=== PATIENT | female | born 1955 | race Caucasian/White ===

== ENCOUNTER 2016-12-18 20:13 | Inpatient (IN) | payer OTHER ==
[~2016-12-18] VITALS: Ht 157.5 cm; Wt 118.5 kg
[~2016-12-18 20:13] MED LIST: BENA40TA41 PO; GLIP-95 PO; METF500T4 PO; SITA100T8 PO
[2016-12-18] MEDS ORDERED: SOD CHLORIDE 0.9% 1,000 ML IV STA (21:26)
[2016-12-18] MEDS ORDERED: ONDANSETRON 4 MG INJ IV STA (21:31)
[2016-12-18] MEDS ORDERED: SOD CHLORIDE 0.9% 1,000 ML IV ONE (22:00)
[2016-12-18] MEDS ORDERED: morphine 10 MG INJ IV ONE (22:00)
[2016-12-18] MEDS ORDERED: IBUP-1542 PO (22:15)
[2016-12-18 22:16] LABS: ADD SCAN DIFF NO
[2016-12-18 22:18] LABS: ADD UMIC YES; BASOPHIL # 0.1 10^3/ul (0.0-0.1); BASOPHILS % 0.4 % (0.0-2.0); EOSINOPHILS # 0.2 10^3/ul (0.0-0.5); EOSINOPHILS % 1.4 % (0.0-7.0); HEMATOCRIT 39.7 % (37.0-47.0); HEMOGLOBIN 13.4 g/dl (12.0-16.0); LYMPHOCYTES # 2.1 10^3/ul (0.8-2.9); LYMPHOCYTES % 17.7 % (15.0-51.0); MEAN CORPUSCULAR HEMOGLOBIN 29.6 pg (29.0-33.0); MEAN CORPUSCULAR HGB CONC 33.8 g/dl (32.0-37.0); MEAN CORPUSCULAR VOLUME 87.8 fl (82.0-101.0); MEAN PLATELET VOLUME 11.9 fl (7.4-10.4); MONOCYTE # 0.6 10^3/ul (0.3-0.9); MONOCYTES % 5.1 % (0.0-11.0); NEUTROPHIL # 8.9 10^3/ul (1.6-7.5); PLATELET COUNT 256 10^3/UL (140-415); RED BLOOD COUNT 4.52 10^6/ul (4.20-5.40); URINE BILIRUBIN (Dip) NEGATIVE (NEGATIVE); URINE BLOOD (Dip) 1+ (NEGATIVE); URINE COLOR LT. YELLOW (YELLOW); URINE GLUCOSE (Dip) NEGATIVE (NEGATIVE); URINE KETONES (Dip) NEGATIVE (NEGATIVE); URINE LEUKOCYTE ESTERASE (Dip) TRACE (NEGATIVE); URINE NITRITE (Dip) NEGATIVE (NEGATIVE); URINE TOTAL PROTEIN (Dip) NEGATIVE (NEGATIVE); URINE UROBILINOGEN (Dip) 0.2 E.U./dL (0.1-1.0); WHITE BLOOD COUNT 11.9 10^3/ul (4.8-10.8)
[2016-12-18 22:48] LABS: BACTERIA,URINE FEW; SQUAMOUS EPITHELIAL CELL,UR FEW
[2016-12-18 23:02] LABS: ALBUMIN 3.6 g/dl (3.3-4.9); INR 0.95; PARTIAL THROMBOPLASTIN TIME 29.6 Sec (25.0-35.0); POTASSIUM 4.2 mmol/L (3.5-5.1); PROTIME 12.7 Sec (12.2-14.2)
[2016-12-18 23:04] LABS: BILIRUBIN,INDIRECT 0.3 mg/dl (0-1.1); BILIRUBIN,TOTAL 0.3 mg/dl (0.2-1.3); CREATININE 0.46 mg/dl (0.44-1.00)
[2016-12-18 23:05] LABS: ALBUMIN/GLOBULIN RATIO 1.16; CALCIUM 8.5 mg/dl (8.4-10.2); TOTAL PROTEIN 6.7 g/dl (6.1-8.1)
--- NOTE | 2016-12-19 00:02 | RADRPT ---
PROCEDURE: CT Abdomen and pelvis without contrast. CLINICAL INDICATION: Abdominal pain. TECHNIQUE: CT scan of the abdomen and pelvis was performed on a multi-detector high-resolution CT scanner. Contiguous axial images were obtained from the lung bases to the ischial tuberosities wit hout intravenous contrast. Coronal and sagittal reformatted images were also obtained. Images were reviewed on the PACS workstation. One or more of the following dose reduction techniques were used: - Automated exposure control. - Adjustment of the mA and/or kV according to patient size. - Use of iterative reconstruction technique. Exam CTD/vol = 23.45 mGy. Total exam DLP = 1419.86 mGy-cm. COMPARISON: 05/18/2016. FINDINGS: Evaluation of the lung bases demonstrates mild bibasilar atelectasis. Abdomen: The liver is normal in size. There is no focal mass or dilatation of the biliary tree. T he patient is status post cholecystectomy. The spleen, pancreas and bilateral adrenal glands are wi thin normal limits. Bilateral kidneys are normal in size. There is a peripherally calcified struct ure off of the upper pole of the right kidney measuring 1.5 x 1.3 cm. There is a fat containing les ion off of the lower pole of the right kidney measuring 2.8 x 2.9 cm consistent with an angiomyolipo ma. There is a 1 mm calculus within the lower pole of the left kidney. There is no radiopaque uret eral calculus identified. There is no hydronephrosis or hydroureter. There is no retroperitoneal a denopathy. The abdominal aorta is of normal caliber with scattered atherosclerotic calcifications. There is a moderate right periumbilical hernia containing multiple loops of small bowel. There are mildly dilated loops of small bowel with air-fluid levels. There is no free air. A normal appendix is identified. There is no diverticulosis or diverticulitis. There is no ascites. Pelvis: The bladder is unremarkable. The uterus and adnexa are within normal limits. There is no significant pelvic adenopathy or free fluid. Evaluation of the osseous structures demonstrates no suspicious lytic or blastic lesion. IMPRESSION: Moderate right periumbilical hernia containing multiple loops of small bowel with obstruction, uncha nged compared with 05/18/2016. Status post cholecystectomy. Right renal angiomyolipoma, unchanged. Small parenchymal calcification within the upper pole of the right kidney, unchanged. Nonobstructing left renal calculus. Mild bibasilar atelectasis. Vascular calcifications reflective of atherosclerosis. .Randall Ruiz MD, Date Time Electronically viewed and signed by .Randall Ruiz MD, on 12/19/2016 00:01 .T/
[2016-12-19] MEDS ORDERED: morphine 4 MG/ML VIAL IV STA (00:21)
[2016-12-19] MEDS ORDERED: ONDANSETRON 4 MG INJ IV STA (01:46)
[2016-12-19] MEDS ORDERED: DICLOFENAC SODIUM 37.5 MG/ML VIAL IV STA (01:46)
[2016-12-19] MEDS ORDERED: ACETAMINOPHEN 325 MG TAB PO PRN (02:00)
[2016-12-19] MEDS ORDERED: ONDANSETRON 4 MG INJ IV PRN ×2 (02:00→18:30)
--- NOTE | 2016-12-19 02:15 | HP ---
Date/Time of Note Date/Time of Note DATE: 12/19/16 TIME: 02:13 Assessment/Plan VTE Prophylaxis VTE Prophylaxis Intervention: other (Lovanox) Assessment/Plan Assessment/Plan 1) Umbilical Hernia, possibly incarcerated, but questionable since the same findings were seen on her CT don in 04/2016, including the bowel obstruction - Admit to Med Surg - NPO - Pain Control - CONSULT: Surgeon - Dr. Corbin notified by ER physician 2) Abnormal finding on CT, possible bowel obstruction with same findings present in 04/2016 - Surgical Evaluation as planned. 3) Hypertensive emergency, treated in the ED - Monitor 4) Morbid Obesity HPI/ROS Admit Date/Time Admit Date/Time 12/19/16 0146 Hx of Present Illness Chief Complaint abdominal pain x 3 days HPI 61-year-old female presents, accompanied by her daughter, with lower abdominal pain for 3 days. The hernia has been present for months, but it has not hurt her until now. No fever or chills. No blood in stool. No black-colored stool Some nausea. Vomited once. No diarrhea. Passing gas and stool. No dysuria, urgency or frequency. No unusual vaginal discharge. History of hernia repaired twice in that area. ER Course per ER Physician: Incarcerated hernia with significant abdominal pain and bowel obstruction. No current signs of strangulation. Pain was refractory but is relieved by pain medications received in the ER. Patient received morphine, dilated jet, Dilaudid. She also receives Zofran for which on the second dose of 4 mg IV her nausea was resolved. She has significant hypertension even with pain relief. Prevent any other acute emergencies in the setting of a hypertensive emergency she was given labetalol 20 mg IV which did reduce the blood pressure to an acceptable level. Spoke to Dr. Corbin, neurosurgeon dental front office assistant, who will see the patient in consult few hours. I also spoke with Dr. Buatista will be admitting the patient to the medical surgical floor. She was given IV hydration and will possibly be going to surgery in the morning. She is placed on n.p.o. status. CT abdomen pelvis interpretation: Hernia with multiple bowel loops with obstruction. No free air, do not see large amount of fat stranding, no fractures Critical care time 30 minutes: This includes management of hypertensive emergency in a patient with a strangulate it hernia, administration of IV labetalol, multiple visits patient's bedside to reassess cardiodynamics status, chart reviewed, discussion with on-call surgeon, discussion with admitting doctor, discussion with patient, this does not include any billable procedures. ROS General: Admits: Denies: Fever, Chills, Poor Appetite Eyes: Admits: Denies: Blurry Vision, Double Vision HENT: Admits: Denies: Ear Pain/Pressure, Runny/Stuffy Nose, Sore Throat Cardiovascular: Admits: Denies: Chest Pain, Palpitations, Leg Swelling Pulmonary: Admits: Denies: Cough, Wheeze, Shortness of Breath Gastrointestinal: Admits: Abdominal Pain, Nausea, Vomiting Denies: Diarrhea, Blood in Stool, Black-Colored Stool Urogenital: Admits: Denies: Burning with Urination, Urinary Frequency, Musculoskeletal: Admits: Denies: Joint Pain, Joint Swelling, Muscle Pain Neurological: Admits: Denies: Headache, Dizziness, Numbness, Tingling, Shooting Pains Integumentary: Admits: Denies: Rash, Itch PMH/Family/Social Past Medical History Medical History: high cholesterol, hypertension Past Surgical History Past Surgical Hx: no surgical history Social History Alcohol Use: none Smoking Status: Never smoker Drug Use: none Exam/Review of Systems Vital Signs Vitals Vital Signs Date Time Temp Pulse Resp B/P Pulse Ox O2 Delivery O2 Flow Rate FiO2 12/19/16 00:13 92 18 184/98 96 Room Air 12/18/16 20:20 99.0 Intake and Output 12/18/16 12/18/16 12/19/16 15:00 23:00 07:00 Intake Total 2000 ml Balance 2000 ml Exam Exam General: Eyes: Sclera White, EOMI HENT: Normocephalic/Atraumatic, External Ears/Nose Normal, Moist Mucus Membranes Neck: Supple, Trachea Midline Cardiovascular: Normal Rate, Normal Rhythm, Normal S1 and S2, No Murmur, No Extra Sounds Pulmonary: Clear to Auscultation Bilaterally, Normal Respiratory Effort, No Rales, Rhonchi or Wheezes Gastrointestinal: Normoactive Bowel Sounds, Soft, Non-Tender/Non-Distended, No Hepatosplenomegaly Appreciated, No Pulsatile Masses. Soft, moderate lower abdominal tenderness to area where there is a palpable hernia that is not able to be reduced, no guarding or rebound, normal appearance with no erythema, morbid obesity, non distended. Normal bowel sounds Urogenital: Deferred Musculoskeletal: Normal Muscle Bulk and Tone Neurological: CN II - XII Grossly Intact, Non-Focal, Speech Normal Integumentary: Normal Moisture and Temperature, Good Turgor, No Jaundice, No Rash Lymphatic: No Cervical Lymphadenopathy Psychiatric: Appropriate Mood and Affect, Good Eye Contact Labs Result Diagram: 12/18/16220312/18/160 Medications Medications Home Meds Reported Medications Ibuprofen* (Ibuprofen*) 600 Mg Tablet, 600 MG PO Q8, TAB 12/18/16 Sitagliptin* (Januvia*) 100 Mg Tablet, 100 MG PO DAILY, #30 TAB 05/18/16 Glipizide* (Glipizide*) 10 Mg Tablet, 10 MG PO BID, TAB 05/18/16 Benazepril Hcl* (Benazepril Hcl*) 40 Mg Tablet, 40 MG PO QHS, #30 TAB 03/16/16 Metformin* (Glucophage*) 500 Mg Tab, 500 MG PO BID, #30 TAB 03/16/16 Procedures Procedures Laboratory Tests Test 12/18/16 22:04 12/18/16 22:40 White Blood Count 11.910^3/ul Red Blood Count 4.5210^6/ul Hemoglobin 13.4g/dl Hematocrit 39.7% Mean Corpuscular Volume 87.8fl Mean Corpuscular Hemoglobin 29.6pg Mean Corpuscular Hemoglobin Concent 33.8g/dl Red Cell Distribution Width 13.0% Platelet Count 18773^3/UL Mean Platelet Volume 11.9fl Neutrophils % 75.0% Lymphocytes % 17.7% Monocytes % 5.1% Eosinophils % 1.4% Basophils % 0.4% Nucleated Red Blood Cells % 0.0/100WBC Neutrophils # 8.910^3/ul Lymphocytes # 2.110^3/ul Monocytes # 0.610^3/ul Eosinophils # 0.210^3/ul Basophils # 0.110^3/ul Nucleated Red Blood Cells # 0.010^3/ul Urine Color LT. YELLOW Urine Clarity CLEAR Urine pH 6.0 Urine Specific [place] 1.020 Urine Ketones NEGATIVE Urine Nitrite NEGATIVE Urine Bilirubin NEGATIVE Urine Urobilinogen 0.2 E.U./dL Urine Leukocyte Esterase TRACE Urine Microscopic RBC 2-5/HPF Urine Microscopic WBC 2-5/HPF Urine Squamous Epithelial Cells FEW Urine Bacteria FEW Urine Hemoglobin 1+ Urine Glucose NEGATIVE% Urine Total Protein NEGATIVE Prothrombin Time 12.7Sec Prothrombin Time Ratio 1.0 INR International Normalized Ratio 0.95 Activated Partial Thromboplast Time 29.6Sec Sodium Level 139mmol/L Potassium Level 4.2mmol/L Chloride Level 103mmol/L Carbon Dioxide Level 28mmol/L Anion Gap 12 Blood Urea Nitrogen 8mg/dl Creatinine 0.46mg/dl Glucose Level 214mg/dl Lactic Acid Level 1.1mmol/L Calcium Level 8.5mg/dl Total Bilirubin 0.3mg/dl Direct Bilirubin 0.00mg/dl Indirect Bilirubin 0.3mg/dl Aspartate Amino Transf (AST/SGOT) 21IU/L Alanine Aminotransferase (ALT/SGPT) 34IU/L Alkaline Phosphatase 70IU/L Total Protein 6.7g/dl Albumin 3.6g/dl Globulin 3.10g/dl Albumin/Globulin Ratio 1.16 Lipase 44U/L RADIOLOGY: PROCEDURE: CT Abdomen and pelvis without contrast. CLINICAL INDICATION: Abdominal pain. COMPARISON: 05/18/2016. IMPRESSION: Moderate right periumbilical hernia containing multiple loops of small bowel with obstruction, unchanged compared with 05/18/2016. Status post cholecystectomy. Right renal angiomyolipoma, unchanged. Small parenchymal calcification within the upper pole of the right kidney, unchanged. Nonobstructing left renal calculus. Mild bibasilar atelectasis. Vascular calcifications reflective of atherosclerosis. MARINA BAUTISTA DO Dec 19, 2016 02:14 Mild bibasilar atelectasis. Vascular calcifications reflective of atherosclerosis. MARINA BAUTISTA DO Dec 19, 2016 02:14 MARINA BAUTISTA DO Dec 19, 2016 02:14 PO 12/19/16 08:00 Insulin Aspart (Novolog Insulin Pen) NOVOLOG *MILD* ALGORITHM WITH MEALS BEDTIME SC 12/19/16 08:00 Insulin Glargine (Lantus) 10 unit DAILY@08 [place] 12/19/16 08:00 Miscellaneous Information (* Miscellaneous Pharmacy Order) HYPOGLYCEMIA PROTOCOL w... ONCE ONCE XX 12/19/16 04:00 12/19/16 04:09 DC Miscellaneous Information (* Miscellaneous Pharmacy Order) Discontinue Glyburide, Glipizide,... ONCE ONCE XX 12/19/16 04:00 12/19/16 04:09 DC Miscellaneous Information (* Miscellaneous Pharmacy Order) Discontinue all previ... ONCE ONCE XX 12/19/16 04:00 12/19/16 04:09 DC Procedures/MDM Incarcerated hernia with significant abdominal pain and bowel obstruction. No current signs of strangulation. Pain was refractory but is relieved by pain medications received in the ER. Patient received morphine, dilated jet, Dilaudid. She also receives Zofran for which on the second dose of 4 mg IV her nausea was resolved. She has significant hypertension even with pain relief. Prevent any other acute emergencies in the setting of a hypertensive emergency she was given labetalol 20 mg IV which did reduce the blood pressure to an acceptable level. Spoke to Dr. Corbin, neurosurgeon dental front office assistant, who will see the patient in consult few hours. I also spoke with Dr. Bautista will be admitting the patient to the medical surgical floor. She was given IV hydration and will possibly be going to surgery in the morning. She is placed on n.p.o. status. CT abdomen pelvis interpretation: Hernia with multiple bowel loops with obstruction. No free air, do not see large amount of fat stranding, no fractures Critical care time 30 minutes: This includes management of hypertensive emergency in a patient with a strangulate it hernia, administration of IV labetalol, multiple visits patient's bedside to reassess cardiodynamics status, chart reviewed, discussion with on-call surgeon, discussion with admitting doctor, discussion with patient, this does not include any billable procedures. Departure Diagnosis: Primary Impression: ROS General: Admits: Denies: Fever, Chills, Poor Appetite, Abnormal Weight Loss, Generalized Body Aches Eyes: Admits: Denies: Blurry Vision, Double Vision, Yellow Eyes HENT: Admits: Denies: Sinus Pain/Pressure, Ear Pain/Pressure, Runny/Stuffy Nose, Sore Throat Cardiovascular: Admits: Denies: Chest Pain, Palpitations, Leg Swelling Pulmonary: Admits: Denies: Cough, Wheeze, Shortness of Breath Gastrointestinal: Admits: Denies: Abdominal Pain, Nausea, Vomiting, Diarrhea, Blood in Stool, Black-Colored Stool Urogenital: Admits: Denies: Burning with Urination, Urinary Frequency, Blood in Urine, Nocturia Musculoskeletal: Admits: Denies: Joint Pain, Joint Swelling, Muscle Pain Neurological: Admits: Denies: Headache, Dizziness, Numbness, Tingling, Shooting Pains Integumentary: Admits: Denies: Rash, Itch, Yellow Skin Endocrine: Admits: Denies: Excessive Thirst, Excessive Hunger, Intolerant to Cold , Intolerant to Heat Psychiatric: Admits: Denies: Anxiety, Depression PMH/Family/Social Past Medical History Medical History: high cholesterol, hypertension Social History Alcohol Use: none Smoking Status: Never smoker Drug Use: none Exam/Review of Systems Vital Signs Vitals Vital Signs Date Time Temp Pulse Resp B/P Pulse Ox O2 Delivery O2 Flow Rate FiO2 12/19/16 00:13 92 18 184/98 96 Room Air 12/18/16 20:20 99.0 Intake and Output 12/18/16 12/18/16 12/19/16 15:00 23:00 07:00 Intake Total 2000 ml Balance 2000 ml Exam Exam General: Eyes: Sclera White, EOMI HENT: Normocephalic/Atraumatic, External Ears/Nose Normal, Moist Mucus Membranes Neck: Supple, Trachea Midline Cardiovascular: Normal Rate, Normal Rhythm, Normal S1 and S2, No Murmur, No Extra Sounds Pulmonary: Clear to Auscultation Bilaterally, Normal Respiratory Effort, No Rales, Rhonchi or Wheezes Gastrointestinal: Normoactive Bowel Sounds, Soft, Non-Tender/Non-Distended, No Hepatosplenomegaly Appreciated, No Pulsatile Masses Urogenital: Deferred Musculoskeletal: Normal Muscle Bulk and Tone Neurological: CN II - XII Grossly Intact, Non-Focal, Speech Normal Integumentary: Normal Moisture and Temperature, Good Turgor, No Jaundice, No Rash Lymphatic: No Cervical Lymphadenopathy Psychiatric: Appropriate Mood and Affect, Good Eye Contact Labs Result Diagram: 12/18/164 12/18/16 2240 Procedures Procedures RADIOLOGY: PROCEDURE: CT Abdomen and pelvis without contrast. CLINICAL INDICATION: Abdominal pain. COMPARISON: 05/18/2016.
[2016-12-19] MEDS ORDERED: LABETALOL HCL 20MG INJ IV ONE (03:30)
[2016-12-19] MEDS ORDERED: NACL 0.9% 3 ML SYG IV SCH (04:00)
[2016-12-19] MEDS ORDERED: METOCLOPRAMIDE 10 MG INJ IV PRN (04:00)
--- NOTE | 2016-12-19 04:25 | ERA ---
ER Documentation Chief Complaint Date/Time DATE: 12/19/16 TIME: 04:14 Chief Complaint abdominal pain x 3 days HPI 61-year-old female presents with lower abdominal pain for 3 days. She has had nausea and an episode of nonbilious nonbloody vomiting. She denies diarrhea. She is passing gas and stool. She states that she has a hernia that may have been repaired twice in that area that has returned. She denies any fevers and chills. ROS All systems reviewed and are negative except as per history of present illness. Medications Home Meds Reported Medications Ibuprofen* (Ibuprofen*) 600 Mg Tablet, 600 MG PO Q8, TAB 12/18/16 Sitagliptin* (Januvia*) 100 Mg Tablet, 100 MG PO DAILY, #30 TAB 05/18/16 Glipizide* (Glipizide*) 10 Mg Tablet, 10 MG PO BID, TAB 05/18/16 Benazepril Hcl* (Benazepril Hcl*) 40 Mg Tablet, 40 MG PO QHS, #30 TAB 03/16/16 Metformin* (Glucophage*) 500 Mg Tab, 500 MG PO BID, #30 TAB 03/16/16 Allergies Allergies: Coded Allergies: No Known Drug Allergies (Verified Allergy, Unknown, 12/18/16) PMhx/Soc History of Surgery: No Anesthesia Reaction: No Hx Neurological Disorder: No Hx Respiratory Disorders: No Hx Cardiac Disorders: Yes (HTN, HYPERLIPIDS) Hx Psychiatric Problems: No Hx Alcohol Use: No Hx Substance Use: No Hx Tobacco Use: No Smoking Status: Never smoker Physical Exam Vitals Vital Signs Date Time Temp Pulse Resp B/P Pulse Ox O2 Delivery O2 Flow Rate FiO2 12/19/16 03:44 77 19 149/71 95 Room Air 12/19/16 01:00 93 17 183/89 94 Room Air 12/19/16 00:13 92 18 184/98 96 Room Air 12/18/16 20:20 99.0 82 20 218/104 96 Physical Exam Const: [] Mild distress, uncomfortable Head: Atraumatic Eyes: Normal Conjunctiva ENT: Normal External Ears, Nose and Mouth. Neck: Full range of motion..~ No meningismus. Resp: Clear to auscultation bilaterally Cardio: Regular mild tachycardia, no murmurs Abd: Soft, moderate lower abdominal tenderness to area where there is a palpable hernia that is not able to be reduced, no guarding or rebound, normal appearance with no erythema, morbid obesity, non distended. Normal bowel sounds Skin: No petechiae or rashes Back: No midline or flank tenderness Ext: No cyanosis, or edema Neur: Awake and alert and oriented 3, no focal deficits Psych: Normal Mood and Affect Result Diagram: 12/18/16 2204 12/18/16 2240 Results 24 hrs Laboratory Tests Test 12/18/16 22:04 12/18/16 22:40 White Blood Count 11.910^3/ul Red Blood Count 4.5210^6/ul Hemoglobin 13.4g/dl Hematocrit 39.7% Mean Corpuscular Volume 87.8fl Mean Corpuscular Hemoglobin 29.6pg Mean Corpuscular Hemoglobin Concent 33.8g/dl Red Cell Distribution Width 13.0% Platelet Count 19415^3/UL Mean Platelet Volume 11.9fl Neutrophils % 75.0% Lymphocytes % 17.7% Monocytes % 5.1% Eosinophils % 1.4% Basophils % 0.4% Nucleated Red Blood Cells % 0.0/100WBC Neutrophils # 8.910^3/ul Lymphocytes # 2.110^3/ul Monocytes # 0.610^3/ul Eosinophils # 0.210^3/ul Basophils # 0.110^3/ul Nucleated Red Blood Cells # 0.010^3/ul Urine Color LT. YELLOW Urine Clarity CLEAR Urine pH 6.0 Urine Specific [place] 1.020 Urine Ketones NEGATIVE Urine Nitrite NEGATIVE Urine Bilirubin NEGATIVE Urine Urobilinogen 0.2 E.U./dL Urine Leukocyte Esterase TRACE Urine Microscopic RBC 2-5/HPF Urine Microscopic WBC 2-5/HPF Urine Squamous Epithelial Cells FEW Urine Bacteria FEW Urine Hemoglobin 1+ Urine Glucose NEGATIVE% Urine Total Protein NEGATIVE Prothrombin Time 12.7Sec Prothrombin Time Ratio 1.0 INR International Normalized Ratio 0.95 Activated Partial Thromboplast Time 29.6Sec Sodium Level 139mmol/L Potassium Level 4.2mmol/L Chloride Level 103mmol/L Carbon Dioxide Level 28mmol/L Anion Gap 12 Blood Urea Nitrogen 8mg/dl Creatinine 0.46mg/dl Glucose Level 214mg/dl Lactic Acid Level 1.1mmol/L Calcium Level 8.5mg/dl Total Bilirubin 0.3mg/dl Direct Bilirubin 0.00mg/dl Indirect Bilirubin 0.3mg/dl Aspartate Amino Transf (AST/SGOT) 21IU/L Alanine Aminotransferase (ALT/SGPT) 34IU/L Alkaline Phosphatase 70IU/L Total Protein 6.7g/dl Albumin 3.6g/dl Globulin 3.10g/dl Albumin/Globulin Ratio 1.16 Lipase 44U/L Current Medications Medications (Trade) Dose Ordered Sig/Ellis Route PRN Reason Start Time Stop Time Status Last Admin Dose Admin Sodium Chloride (NS) 1,000 ml @ 1,000 mls/hr Q1H STAT IV 12/18/16 21:26 12/18/16 22:25 DC 12/18/16 21:42 Morphine Sulfate 8 mg 8 mg ONCE ONCE IV 12/18/16 22:00 12/18/16 22:01 DC 12/18/16 21:43 Sodium Chloride (NS) 1,000 ml @ 1,000 mls/hr Q1H ONCE IV 12/18/16 22:00 12/18/16 22:59 DC 12/18/16 21:42 Ondansetron HCl (Zofran Inj) 4 mg ONCE STAT IV 12/18/16 21:31 12/18/16 21:34 DC 12/18/16 21:42 Morphine Sulfate (morphine) 4 mg ONCE STAT IV 12/19/16 00:21 12/19/16 00:22 DC 12/19/16 00:32 Ondansetron HCl (Zofran Inj) 4 mg BRIDGE ORDER PRN IV NAUSEA AND/OR VOMITING 12/19/16 02:00 12/19/16 04:07 DC Acetaminophen (Tylenol Tab) 650 mg ER BRIDGE PRN PO MILD PAIN/FEVER 12/19/16 02:00 12/19/16 04:07 DC Ondansetron HCl (Zofran Inj) 4 mg ONCE STAT IV 12/19/16 01:46 12/19/16 01:49 DC 12/19/16 03:14 Diclofenac Sodium (Dyloject) 37.5 mg ONCE STAT IV 12/19/16 01:46 12/19/16 01:49 DC 12/19/16 03:14 Labetalol HCl 20 mg 20 mg ONCE ONCE IV 12/19/16 03:30 12/19/16 03:31 DC 12/19/16 03:36 Sodium Chloride (NS) 1,000 ml @ 125 mls/hr Q8H IV 12/19/16 03:36 IV Flush (NS 3 ml) 3 ml PER PROTOCOL IV 12/19/16 04:00 Metoclopramide HCl (Reglan) 10 mg Q6H PRN IV NAUSEA AND/OR VOMITING 12/19/16 04:00 Morphine Sulfate (morphine) 2 mg Q4H PRN IV SEVERE PAIN LEVEL 7-10 12/19/16 04:00 Famotidine (Pepcid Iv) 20 mg Q12 IV 12/19/16 09:00 Enoxaparin Sodium (Lovenox) 40 mg DAILY SC 12/19/16 09:00 Benazepril HCl (Lotensin) 40 mg QHS PO 12/19/16 21:00 Metformin HCl (Glucophage) 500 mg WITH BREAKFAST DINNE PO 12/19/16 08:00 Insulin Aspart (Novolog Insulin Pen) NOVOLOG *MILD* ALGORITHM WITH MEALS BEDTIME SC 12/19/16 08:00 Insulin Glargine (Lantus) 10 unit DAILY@08 [place] 12/19/16 08:00 Miscellaneous Information (* Miscellaneous Pharmacy Order) HYPOGLYCEMIA PROTOCOL w... ONCE ONCE XX 12/19/16 04:00 12/19/16 04:09 DC Miscellaneous Information (* Miscellaneous Pharmacy Order) Discontinue Glyburide, Glipizide,... ONCE ONCE XX 12/19/16 04:00 12/19/16 04:09 DC Miscellaneous Information (* Miscellaneous Pharmacy Order) Discontinue all previ... ONCE ONCE XX 12/19/16 04:00 12/19/16 04:09 DC Procedures/MDM Incarcerated hernia with significant abdominal pain and bowel obstruction. No current signs of strangulation. Pain was refractory but is relieved by pain medications received in the ER. Patient received morphine, dilated jet, Dilaudid. She also receives Zofran for which on the second dose of 4 mg IV her nausea was resolved. She has significant hypertension even with pain relief. Prevent any other acute emergencies in the setting of a hypertensive emergency she was given labetalol 20 mg IV which did reduce the blood pressure to an acceptable level. Spoke to Dr. Corbin, neurosurgeon mortgage loan computation clerk, who will see the patient in consult few hours. I also spoke with Dr. Medina will be admitting the patient to the medical surgical floor. She was given IV hydration and will possibly be going to surgery in the morning. She is placed on n.p.o. status. CT abdomen pelvis interpretation: Hernia with multiple bowel loops with obstruction. No free air, do not see large amount of fat stranding, no fractures Critical care time 30 minutes: This includes management of hypertensive emergency in a patient with a strangulate it hernia, administration of IV labetalol, multiple visits patient's bedside to reassess cardiodynamics status, chart reviewed, discussion with on-call surgeon, discussion with admitting doctor, discussion with patient, this does not include any billable procedures. Departure Diagnosis: Primary Impression: Incarcerated hernia Additional Impressions: Bowel obstruction Hypertensive emergency Condition: Serious CHASITY FERREIRA DO Dec 19, 2016 04:25
[2016-12-19] MEDS ORDERED: GLUCOSE GEL 15 GRAM TUBE PO PRN ×2 (04:30)
[2016-12-19] MEDS ORDERED: GLUCAGON 1 MG INJ IM PRN (04:30)
[2016-12-19] MEDS ORDERED: GLUCOSE GEL 15 GRAM TUBE BUCCAL PRN (04:30)
[2016-12-19] MEDS ORDERED: DEXTROSE 50% 50 ML SYRINGE IV PRN ×2 (04:30)
[2016-12-19 04:34] VITALS: Ht 157.5 cm; Wt 118.5 kg
[2016-12-19 04:35] VITALS: BP 172/72; PULSE 81; RESP 20
[2016-12-19] MEDS: SOD CHLORIDE 0.9% 1,000 ML IV SCH ×4 (04:53→23:30)
[2016-12-19 04:55] VITALS: BP 145/84; PULSE 85; RESP 18
[2016-12-19 07:49] VITALS: BP 158/74; RESP 20
[2016-12-19] MEDS: metFORMIN 500 MG TAB PO SCH ×2 (08:15→17:53)
[2016-12-19] MEDS: morphine 2 MG INJ IV PRN ×2 (08:24→17:42)
[2016-12-19] MEDS ORDERED: morphine 2 MG INJ IV STA (09:20)
[2016-12-19 09:31] VITALS: BP 180/82; PULSE 84; RESP 16
[2016-12-19 09:49] VITALS: BP 174/79; PULSE 79; RESP 18
[2016-12-19] MEDS: FAMOTIDINE 20 MG INJ IV SCH ×2 (10:06→20:32)
[2016-12-19] MEDS: INSULIN ASPART [NOVOLOG] 3 ML PEN SC SCH ×4 (10:27→20:36)
[2016-12-19] MEDS: ENOXAPARIN 40 MG/0.4 ML SYG SC SCH (10:27)
[2016-12-19] MEDS: INSULIN GLARGINE [LANtus] 3 ML PEN SC SCH (10:33)
--- NOTE | 2016-12-19 10:59 | CONS ---
[facility] INITIAL INPATIENT CONSULTATION NOTE DATE OF CONSULTATION: 12/19/2016 PLACE OF SERVICE: [facility], 6th floor. ASSESSMENT AND PLAN: A very pleasant 61-year-old lady with multiple comorbid issues, the most serious of which is her BMI of 47.8, admitted with abdominal pain in the setting of chronically incarcerated ventral incisional hernia that has been repaired 3 times, the latest of which was in 2006. The patient currently shows no need for immediate surgical intervention. With my attempt at reducing this hernia, I believe that we have a chance to observe the patient with symptom controlled, and hopefully improve her abdominal pain and show that the bowel is open with the an upper GI with small-bowel follow through in a few days once the patient has been stabilized. I do not see a need for insertion of an NG tube at the moment, but she should be kept n.p.o. Ultimately, the patient can significantly benefit from referral to a hernia specialist, who would be able to perform one operation likely with a component separation involved as well as mesh to repair this symptomatic hernia and reduce the patient's risk of needing emergency surgery in the future. Of utmost importance is also the need for the patient to change her lifestyle and to decrease her BMI to a healthy range such as 18 to 24. I explained all of this to the patient as well as her daughter and answered all their questions to the best of my ability. I believe that the patient and family appear to understand and agree with the plans. With above assessment, I have recommended the followin. Continue in-house observation. 2. Culture urine. 3. Intravenous antimicrobials geared toward possible urinary tract infection. 4. Treat symptoms. 5. Keep n.p.o. 6. Low threshold for NG tube placement. 7. Possible surgical intervention if the patient does not improve or worsens. 8. Upper GI with small-bowel follow through in a few days once the patient has been further stabilized. 9. Possible referral to a hernia specialist as an outpatient for elective repair of the hernia. Thank you again for allowing us to participate in the care of this very pleasant lady and her wonderful family. If there are any questions, please feel free to call me at [phone]. TOTAL VISIT TIME: Sixty minutes of which more than half was spent in face-to- face discussion with the patient as well as coordination of care between multiple physicians and providers. UPDATED CLINICAL SUMMARY: The patient is a very pleasant 61-year-old lady with comorbidity of BMI of 47.8, as well as a previous operations for a hernia that she has had likely from her 3 C-sections in the past, presenting with abdominal pain and nausea, vomiting, to [facility] on 12/19/2016. COMORBIDITIES: 1. BMI 47.8. 2. Hypertension. 3. History of bowel obstruction in the past. 4. Hypertensive emergency. 5. History of incarcerated hernia, status post multiple repairs (reportedly 3 repairs), last repair in 2006. 6. Family history of endocrine and metabolic disease. 7. Family history of hypertension. 8. Family history of cardiac disorders. 9. Diabetes. DATE OF ADMISSION: 12/19/2016 HISTORY OF PRESENT ILLNESS: The patient is a very pleasant 61-year-old lady with above-mentioned comorbidities whom we were kindly asked to consult regarding abdominal pain and incarcerated hernia. She has been dealing with an incarcerated hernia for at least the last 10 years. Her last operation per report was in 2006 for hernia repair. She has had a bowel obstruction history in the past. Her symptoms included some nausea and a few episodes of vomiting which was nonbilious and nonbloody. She does not report any changes in appetite. No significant issues with bowel or bladder habits. No difficulty with her respiratory or cardiac system. She does report some burning and itching with urination. She has had C-sections x3 as well as above-mentioned 3 ventral hernia repair. A history of cholecystectomy and removal of tumor from face as well. ALLERGIES: NO KNOWN DRUG ALLERGIES. MEDICATIONS: 1. Benazepril. 2. Glipizide. 3. Ibuprofen. 4. Glucophage. 5. Januvia. SOCIAL HISTORY: The patient lives with her family. She does not report any smoking, drinking, or intravenous drug use. FAMILY HISTORY: There is history of endocrine and metabolic disease, hypertension and cardiac disorders in the family. REVIEW OF SYSTEMS: Other than the above-mentioned, there are no other pertinent positives or pertinent negatives in a complete 14-point review of systems. PHYSICAL EXAMINATION: GENERAL: The patient appears to be a very pleasant lady of descent, appearing stated age, lying in bed comfortably and in no acute distress. Her BMI is 47.8. VITAL SIGNS: Temperature is 98.7, blood pressure 174/79, pulse 79, respiratory rate 18, pulse oximetry 97% on 2 liters of nasal cannula. HEENT: Normocephalic and atraumatic. Extraocular muscles and hearing are grossly intact bilaterally and symmetrically. Sclerae are nonicteric. Oral cavity is clear; oral mucosa appeared to be pink and moist. Dentition: fair to poor. NECK: Supple. There is no lymphadenopathy or JVD. There is no submental, submandibular or supraclavicular lymphadenopathy. CHEST: Rises symmetrically with each breath; patient is breathing comfortably. There are no audible wheezes, rales or rhonchi on the gross exam. HEART: Pulse is regular and palpable on the left wrist. Capillary refill was normal. Carotid pulses are palpable bilaterally and symmetrically in the neck. EXTREMITIES: Lower extremities contain no pitting edema around the ankles bilaterally and symmetrically. ABDOMEN: Shows a soft and nondistended abdomen which is somewhat tender to palpation diffusely without specific increase in pain around the area of the incarcerated hernia. There are no peritoneal signs or guarding. There is no evidence of organomegaly, caput medusae, engorged subcutaneous veins, or ascites. The hernia itself appears to be periumbilical and slightly to the right of the umbilicus and superior to it. There appears to be bowel content within it. After administrating extra pain medications and keeping the patient in reverse Trendelenburg, I was able to partially reduce the area of the hernia. She had some discomfort with this maneuver, but certainly no peritoneal -type difficulties. Pulse oximetry was used during the maneuver as well as pre and post, and the patient was carefully observed by the nursing staff. SKIN: Appears to be pink and feels warm to touch. NEUROLOGIC: Awake, alert, and follows commands appropriately. LABORATORY DATA: White blood cell count 11.9, hemoglobin 13.4, platelets 256. Electrolytes are normal. Creatinine 0.46. Lactic acid 1.1, albumin 3.6, total bilirubin 0.3, AST 21, ALT 34, alkaline phosphatase 70. Hemoglobin A1c 8.4. INR 0.95. Urinalysis showed trace leukocyte esterase but no nitrite. IMAGING: The patient's abdominal and pelvic CT on 12/18/2016 showed moderate right periumbilical hernia containing multiple loops of small-bowel with obstruction, unchanged as compared with 05/18/2016. There is evidence of previous cholecystectomy. 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 Small parenchymal calcification within the upper pole of the right kidney was also noted and this was unchanged. There was nonobstructing left renal calculus and mild bibasilar atelectasis as well as vascular calcifications reflective of atherosclerosis. Note that I personally reviewed both this image as well as the previous CT scan , and all available pertinent images and I agree in general with their overall reported findings. The hernia appears to be containing both small-bowel as well as colon. It has a relatively wide opening and the bowel itself does not appear to be congested, and there is no evidence of pneumatosis, and certainly no evidence of perforation. Dictated By: AMANDO PERES/HIEN Conf#: [id number] DID#: [id number] MTDD
[2016-12-19] MEDS: LEVOFLOXACIN 500MG/D5W (PMX) 100 ML IVPB SCH (18:57)
[2016-12-19] MEDS: METOCLOPRAMIDE 10 MG INJ IV SCH ×2 (18:57→23:34)
[2016-12-19 20:07] VITALS: BP 142/68; RESP 16
[2016-12-19] MEDS: DOCUSATE SODIUM 100 MG CAP PO SCH (20:35)
[2016-12-19] MEDS: METOPROLOL 25 MG TAB PO SCH (20:35)
[2016-12-19] MEDS: BENAZEPRIL 40 MG TAB PO SCH (20:36)
[2016-12-20] MEDS: ACCUCHECK AT 2AM (Patients on SS coverage) XX SCH (01:40)
[2016-12-20] MEDS: SOD CHLORIDE 0.9% 1,000 ML IV SCH ×3 (03:19→16:57)
[2016-12-20] MEDS: METOCLOPRAMIDE 10 MG INJ IV SCH ×4 (05:37→23:59)
[2016-12-20] MEDS: morphine 2 MG INJ IV PRN ×2 (05:40→18:47)
[2016-12-20 06:03] LABS: ADD SCAN DIFF NO
[2016-12-20 06:21] LABS: BASOPHILS % 0.5 % (0.0-2.0); EOSINOPHILS # 0.4 10^3/ul (0.0-0.5); EOSINOPHILS % 4.2 % (0.0-7.0); HEMATOCRIT 36.9 % (37.0-47.0); HEMOGLOBIN 11.7 g/dl (12.0-16.0); LYMPHOCYTES # 2.6 10^3/ul (0.8-2.9); LYMPHOCYTES % 28.7 % (15.0-51.0); MEAN CORPUSCULAR HGB CONC 31.7 g/dl (32.0-37.0); MEAN CORPUSCULAR VOLUME 91.6 fl (82.0-101.0); MEAN PLATELET VOLUME 11.3 fl (7.4-10.4); MONOCYTE # 0.7 10^3/ul (0.3-0.9); MONOCYTES % 8.3 % (0.0-11.0); NEUTROPHIL # 5.1 10^3/ul (1.6-7.5); NEUTROPHILS % 57.8 % (39.0-77.0); PLATELET COUNT 272 10^3/UL (140-415); RED BLOOD COUNT 4.03 10^6/ul (4.20-5.40); RED CELL DISTRIBUTION WIDTH 13.3 % (11.5-14.5); WHITE BLOOD COUNT 8.9 10^3/ul (4.8-10.8)
[2016-12-20 06:41] LABS: CHOL/HDL RATIO 4.2 RATIO
[2016-12-20 06:43] LABS: POTASSIUM 3.8 mmol/L (3.5-5.1)
[2016-12-20 06:46] LABS: CREATININE 0.54 mg/dl (0.44-1.00)
[2016-12-20 06:47] LABS: CALCIUM 7.3 mg/dl (8.4-10.2); MAGNESIUM 1.9 mg/dl (1.7-2.5)
[2016-12-20 08:00] VITALS: BP 146/70; PULSE 67; RESP 16
[2016-12-20] MEDS: DOCUSATE SODIUM 100 MG CAP PO SCH ×2 (08:02→20:33)
[2016-12-20] MEDS: metFORMIN 500 MG TAB PO SCH ×2 (08:02→18:41)
[2016-12-20] MEDS: METOPROLOL 25 MG TAB PO SCH ×2 (08:03→20:34)
[2016-12-20] MEDS: POLYETHYLENE GLYCOL 17 GM PACKET PO SCH (08:03)
[2016-12-20 08:06] LABS: THYROID STIMULATING HORMONE 1.16 MIU/L (0.465-4.680)
[2016-12-20] MEDS: INSULIN ASPART [NOVOLOG] 3 ML PEN SC SCH ×4 (08:15→20:42)
[2016-12-20] MEDS: FAMOTIDINE 20 MG INJ IV SCH ×2 (08:24→20:34)
[2016-12-20] MEDS: ENOXAPARIN 40 MG/0.4 ML SYG SC SCH (08:33)
[2016-12-20] MEDS: INSULIN GLARGINE [LANtus] 3 ML PEN SC SCH (08:33)
--- NOTE | 2016-12-20 14:58 | PN ---
Date/Time of Note Date/Time of Note DATE: 12/20/16 TIME: 14:48 Assessment/Plan VTE Prophylaxis VTE Prophylaxis Intervention: LMWH Lines/Catheters IV C[facility]ter Type (from [facility]): Peripheral IV Urinary Cath still in place: No Assessment/Plan Chief Complaint/Hosp Course 1) Umbilical Hernia, possibly incarcerateD Surgery consult appreciated, plan is for conservative care at this time Continue n.p.o. status, no indication for NG tube at this time 2) Hypertensive emergency, treated in the ED Monitor 3) Morbid Obesity Lifestyle changes advised Prophylaxis: Lovenox Problems: Subjective 24 Hr Interval Summary Constitutional: no complaints Exam/Review of Systems Vital Signs Vitals Vital Signs Date Time Temp Pulse Resp B/P Pulse Ox O2 Delivery O2 Flow Rate FiO2 12/20/16 08:00 98.4 67 16 146/70 95 Nasal Cannula 2.0 Intake and Output 12/19/16 12/19/16 12/20/16 15:00 23:00 07:00 Intake Total 1000 ml 1100 ml 675 ml Output Total 650 ml 800 ml Balance 1000 ml 450 ml -125 ml Exam Constitutional: alert, oriented Respiratory: clear to auscultation Gastrointestinal: soft, No distended Musculoskeletal: nl extremities to inspection Results Result Diagram: 12/20/16 0529 12/20/16 0529 Results 24 hrs Laboratory Tests Test 12/19/16 17:20 12/19/16 20:33 12/20/16 05:29 12/20/16 08:02 Bedside Glucose 152 161 124 White Blood Count 8.9 # Red Blood Count 4.03 L Hemoglobin 11.7 L Hematocrit 36.9 L Mean Corpuscular Volume 91.6 Mean Corpuscular Hemoglobin 29.0 Mean Corpuscular Hemoglobin Concent 31.7 L Red Cell Distribution Width 13.3 Platelet Count 272 Mean Platelet Volume 11.3 H Neutrophils % 57.8 Lymphocytes % 28.7 Monocytes % 8.3 Eosinophils % 4.2 Basophils % 0.5 Nucleated Red Blood Cells % 0.0 Neutrophils # 5.1 Lymphocytes # 2.6 Monocytes # 0.7 Eosinophils # 0.4 Basophils # 0.0 Nucleated Red Blood Cells # 0.0 Sodium Level 138 Potassium Level 3.8 Chloride Level 104 Carbon Dioxide Level 29 Anion Gap 9 Blood Urea Nitrogen 7 Creatinine 0.54 Glucose Level 144 # Calcium Level 7.3 L Magnesium Level 1.9 Triglycerides Level 120 Cholesterol Level 132 LDL Cholesterol, Calculated 77 HDL Cholesterol 31 L Cholesterol/HDL Ratio 4.2 Thyroid Stimulating Hormone (TSH) 1.160 Test 12/20/16 12:12 Bedside Glucose 109 Medications Medications Current Medications Sodium Chloride (NS) 1,000 ml @ 125 mls/hr Q8H IV Last administered on 08:25; Admin Dose 125 MLS/HR; Start 12/19/16 at 03:36 Morphine Sulfate (morphine) 2 mg Q4H PRN IV SEVERE PAIN LEVEL 7-10 Last administered on 12/20/16 05:40; Admin Dose 2 MG; Start 12/19/16 at 04:00 Famotidine (Pepcid Iv) 20 mg Q12 IV Last administered on 12/20/16 08:24; Admin Dose 20 MG; Start 12/19/16 at 09:00 Enoxaparin Sodium (Lovenox) 40 mg DAILY SC Last administered on 12/20/16 08:33 ; Admin Dose 40 MG; Start 12/19/16 at 09:00 Benazepril HCl (Lotensin) 40 mg QHS PO ; Start 12/19/16 at 21:00 Insulin Glargine (Lantus) 10 unit DAILY@08 SC Last administered on 12/20/16 08 :33; Admin Dose 10 UNIT; Start 12/19/16 at 08:00 Diagnostic Test (Pha) (Accu-Chek) 1 ea 02 XX ; Start 12/20/16 at 02:00 Miscellaneous Information 1 ea NOTE XX ; Start 12/19/16 at 04:30 Glucose (Glutose) 15 gm Q15M PRN PO DECREASED GLUCOSE; Start 12/19/16 at 04:30 Glucose (Glutose) 22.5 gm Q15M PRN PO DECREASED GLUCOSE; Start 12/19/16 at 04: 30 Dextrose (D50w Syringe) 25 ml Q15M PRN IV DECREASED GLUCOSE; Start 12/19/16 at 04:30 Dextrose (D50w Syringe) 50 ml Q15M PRN IV DECREASED GLUCOSE; Start 12/19/16 at 04:30 Glucagon (Glucagen) 1 mg Q15M PRN IM DECREASED GLUCOSE; Start 12/19/16 at 04:30 Glucose (Glutose) 15 gm Q15M PRN BUCCAL DECREASED GLUCOSE; Start 3/26/17 at 04 :30 Metoclopramide HCl (Reglan) 10 mg Q6 IV Last administered on 12/20/16 12:13; Admin Dose 10 MG; Start 12/19/16 at 18:30 Ondansetron HCl 4 mg 4 mg Q6H PRN IV NAUSEA AND/OR VOMITING; Start 12/19/16 at 18:30 Levofloxacin/ Dextrose (Levaquin 500mg/ D5W 100 ml (Pmx)) 100 ml @ 100 mls/hr Q24H IVPB Last administered on 12/19/16 18:57; Admin Dose 100 MLS/HR; Start at 18:30 Metoprolol Tartrate (Lopressor) 25 mg BID PO ; Start 12/19/16 at 21:00 Docusate Sodium (Colace) 100 mg BID PO ; Start 12/19/16 at 21:00 Polyethylene Glycol (Miralax) 17 gm DAILY PO ; Start 12/20/16 at 09:00 LANA BRIGHT Dec 20, 2016 14:58
--- NOTE | 2016-12-20 16:50 | PN ---
Date/Time of Note Date/Time of Note DATE: 12/20/16 TIME: 16:46 Assessment/Plan Lines/Catheters IV C[facility]ter Type (from [facility]): Peripheral IV Azar in Place (from [facility]): No Assessment/Plan Assessment/Plan [facility] Progress Note Date of Service: 12/20/16 Today's Impression & Plan: Overall doing well without major issues. Abd benign. + bowel activity. No indication for acute surgical intervention. With above assessment, I've recommended the following for today: 1. Continue in-house observation. 2. F/u on urine culture. 3. Cont intravenous antimicrobials geared toward possible urinary tract infection. 4. Treat symptoms. 5. Start full liquid diet and advance as tolerated. 6. Possible d/c home tomorrow am if tolerates adequate po 7. Work on referral to a hernia specialist as an outpatient for elective repair of the hernia. Thank you again for your great care of this very pleasant patient and wonderful family. If there are any questions, please feel free to call me at [phone]. TOTAL VISIT TIME: 20 minutes of which more than half was spent in [id number] discussion with the patient, possibly including family, as well as coordination of care between multiple physicians and providers. Disclaimer: Inadvertent spelling or grammatical errors are likely due to EHR/ dictation software use and do not reflect on the overall quality of patient care. Updated Clinical Summary: UPDATED CLINICAL SUMMARY: The patient is a very pleasant 61-year-old lady with comorbidity of BMI of 47.8, as well as a previous operations for a hernia that she has had likely from her 3 C-sections in the past, presenting with abdominal pain and nausea, vomiting, to [facility] on 12/19/2016. COMORBIDITIES: 1. BMI 47.8. 2. Hypertension. 3. History of bowel obstruction in the past. 4. Hypertensive emergency. 5. History of incarcerated hernia, status post multiple repairs (reportedly 3 repairs), last repair in 2006. 6. Family history of endocrine and metabolic disease. Subjective: No major events or complaints; no abd pain and under control with medications; no n/v/d; no sob or cp; + flatus; + BM and normal; + activity Objective: Vitals: See below Exam: GENERAL: On exam, the patient was sitting in a chair and appeared to be comfortable and in no acute distress. ABDOMEN: Soft, nontender and nondistended. There are no peritoneal signs or guarding. SKIN: Skin appears to be pink and feels warm to touch. NEUROLOGIC: Patient is awake, alert, and follows commands appropriately. Exam/Review of Systems Vital Signs Vitals Vital Signs Date Time Temp Pulse Resp B/P Pulse Ox O2 Delivery O2 Flow Rate FiO2 12/20/16 08:00 98.4 67 16 146/70 95 Nasal Cannula 2.0 Intake and Output 12/19/16 12/19/16 12/20/16 15:00 23:00 07:00 Intake Total 1000 ml 1100 ml 675 ml Output Total 650 ml 800 ml Balance 1000 ml 450 ml -125 ml Results Result Diagram: 12/20/16 0529 12/20/16 0529 AMANDO QUINN M.D. Dec 20, 2016 16:50
[2016-12-20] MEDS: LEVOFLOXACIN 500MG/D5W (PMX) 100 ML IVPB SCH (18:40)
[2016-12-20 20:00] VITALS: BP 127/60; RESP 18
[2016-12-20] MEDS: BENAZEPRIL 40 MG TAB PO SCH (20:34)
[2016-12-21] MEDS: SOD CHLORIDE 0.9% 1,000 ML IV SCH ×2 (01:32→11:36)
[2016-12-21] MEDS: ACCUCHECK AT 2AM (Patients on SS coverage) XX SCH (01:34)
[2016-12-21] MEDS: METOCLOPRAMIDE 10 MG INJ IV SCH ×2 (05:35→12:20)
[2016-12-21 06:07] LABS: POTASSIUM 3.5 mmol/L (3.5-5.1)
[2016-12-21 06:09] LABS: CREATININE 0.57 mg/dl (0.44-1.00)
[2016-12-21 06:10] LABS: CALCIUM 7.8 mg/dl (8.4-10.2)
[2016-12-21 07:53] VITALS: BP 145/66; RESP 20
[2016-12-21] MEDS: INSULIN ASPART [NOVOLOG] 3 ML PEN SC SCH ×2 (08:00→12:00)
[2016-12-21] MEDS: POLYETHYLENE GLYCOL 17 GM PACKET PO SCH (08:15)
[2016-12-21] MEDS: DOCUSATE SODIUM 100 MG CAP PO SCH (08:16)
[2016-12-21] MEDS: FAMOTIDINE 20 MG INJ IV SCH (08:20)
[2016-12-21] MEDS: METOPROLOL 25 MG TAB PO SCH (08:20)
[2016-12-21] MEDS: metFORMIN 500 MG TAB PO SCH (08:20)
[2016-12-21] MEDS: INSULIN GLARGINE [LANtus] 3 ML PEN SC SCH (08:39)
[2016-12-21] MEDS: ENOXAPARIN 40 MG/0.4 ML SYG SC SCH (08:40)
[2016-12-21] MEDS ORDERED: POTASSIUM PHOSPHATE 20 MEQ in SOD CHLORIDE 0.9% 250 ML IVPB ONE (11:00)
--- NOTE | 2016-12-21 11:01 | PDOCDIS ---
Discharge Instructions CONDITION Patient Condition: Good HOME CARE INSTRUCTIONS: Special Diet: LOW CALORIE, LOW CARB- DIABETIC ACTIVITY: Activity Restrictions: No Restrictions FOLLOW UP/APPOINTMENTS Appointments F/U WITH YOUR PCP IN 1-2 WEEKS LANA BRIGHT Dec 21, 2016 11:01
--- NOTE | 2016-12-21 18:13 | DS ---
DATE OF ADMISSION: 12/19/2016 DATE OF DISCHARGE: 12/21/2016 DISCHARGE DIAGNOSES: 1. Umbilical hernia with questionable bowel incarceration, now resolved. No evidence of bowel inca rceration at this time. The patient is having bowel movements, and hence there is no evidence of pe rsistent small-bowel obstruction. The patient cleared for discharge per Surgery. 2. Morbid obesity. The patient advised for lifestyle changes. Preschool Education Director has spoken to the patient . 3. Hypertension. Continue home medications. 4. Diabetes. Continue home medications. HOSPITAL COURSE: The patient is a 61-year-old female with history of morbid obesity, hypertension, diabetes as well as umbilical hernia. The patient had a CT in 04/2016 that showed possible incarcer ation. The patient presents once again with abdominal pain. CT showed the same periumbilical herni a containing multiple loops of small bowel with obstruction, unchanged when compared to the CAT scan in 04/2016. The patient was having bowel movements. She was seen by Surgery. There was no indica tion for any further intervention per Surgery and was cleared for discharge. The patient was having bowel movements on the day of discharge. On day of discharge, patient's vital signs, labs, physica l exam were stable. She had no acute complaints. Questions were answered. The patient was told of the importance of weight loss and did speak to a dietitian on the day of discharge. CONDITION ON DISCHARGE: Stable. DISPOSITION: To home. MEDICATIONS: The patient is to continue usual home medications. No new medications prescribed. FOLLOWUP: The patient to follow up with her PCP in 1 to 2 weeks. Greater than 30 minutes was spent coordinating discharge of patient. Dictated By: LANA BRIGHT MD BS/NTS Conf#: [id number] DID#: [id number]
== END 2016-12-21 14:55 | disposition home or self-care (01) | DRG 394 ==
LOC: E/R 20:13 → MS2 12-19 01:48
PROVIDERS: ADMIT Family Medicine; ATTEND Family Medicine
DX: K42.0 Umbilical hernia with obstruction, without gangrene (principal); Z68.42 Body mass index [BMI] 45.0-49.9, adult; I16.0 Hypertensive urgency; E66.01 Morbid (severe) obesity due to excess calories; E11.9 Type 2 diabetes mellitus without complications
CPT/HCPCS: 36415; 74176; 80048; 80053; 80061; 81001; 81003; 82962; 83036; 83605; 83690; 83735; 84100; 84443; 85025; 85610; 85730; 87086; 96361; 96374; 96375; 96376; J1650; J1815; J1956; J2270; J2405; J2765; J7030; J7050

== ENCOUNTER 2018-01-31 01:52 | Inpatient (IN) | END 2018-02-02 19:00 | disposition home or self-care (01) | DRG 389 ==

== ENCOUNTER 2018-04-15 00:12 | Inpatient (IN) | END 2018-04-17 12:01 | disposition home or self-care (01) | DRG 389 ==